=== PATIENT | male | born 1940 | race Caucasian/White ===

== ENCOUNTER → 2019-03-25 | Outpatient (CLI) | payer MEDICARE ==
[~2019-03-25] MED LIST: CATHETER FLUSH 10 ML SYR IV PRN; HOLD METFORMIN - RECEIVED CONTRAST 20 ML VIAL IV SCH; IOHEXOL 350 MG/ML 100 ML (OMNIPAQUE 350) VIAL IV ONE; NS 100 ML (IVPB) BAG IV ONE
[2019-03-25 08:35] LABS: CREATININE SERUM 1.33 MG/DL (0.60-1.30)
--- NOTE | 2019-03-25 11:51 | Diagnostic Imaging Report ---
PROCEDURE: CT abdomen and pelvis with and without contrast. TECHNIQUE: Precontrast acquisitions were acquired through the abdomen and pelvis. Multiple contiguous axial images were obtained through the abdomen and pelvis after the administration of intravenous contrast. Auto Exposure Controls were utilized during the CT exam to meet ALARA standards for radiation dose reduction. INDICATION: Right-sided abdominal pain for 6 weeks. No prior studies are available for comparison. FINDINGS: Lung bases demonstrate tiny nodular density right middle lobe measuring 5 mm. Otherwise lung bases are clear. No discrete liver mass is detected. The gallbladder is surgically absent. No biliary ductal dilatation is seen. The pancreas and spleen are unremarkable. Left adrenal gland is unremarkable. There may be a small nodule involving the lateral limb of the right adrenal gland measuring 15 mm. This is low density and may represent a small adenoma. Kidneys have extrarenal pelves bilaterally. No definite calculi or hydronephrosis is detected. Aorta is heavily calcified but not aneurysmal. No central retroperitoneal or mesenteric lymphadenopathy is detected. Post surgical changes involving bowel loops in the right abdomen are noted. Bowel loops are normal caliber. No obstruction is seen. There is diverticulosis of the sigmoid colon but no evidence of acute diverticulitis. Moderate stool in the colon is noted. Appendix is unremarkable. No free fluid is identified. No fluid collection is detected. Bladder is unremarkable. The prostate gland is enlarged. No definite pelvic lymphadenopathy is detected. Bony structures demonstrate degenerative changes throughout the lumbar spine. IMPRESSION: 1. Diverticulosis without evidence of acute diverticulitis. 2. Prostatomegaly. 3. Small right adrenal nodule, likely adenoma. 4. No acute feature in the abdomen or pelvis is identified. Dictated by: Dictated on workstation # [id number]
== END ==
LOC: RAD FS 07:19
PROVIDERS: ATTEND Nurse Practitioner Family
DX: Z01.812 Encounter for preprocedural laboratory examination (principal); K57.30 Diverticulosis of large intestine without perforation or abscess without bleeding; N40.0 Benign prostatic hyperplasia without lower urinary tract symptoms; E27.8 Other specified disorders of adrenal gland; Z90.49 Acquired absence of other specified parts of digestive tract
CPT/HCPCS: 36415; 74178; 82565; 84520

== ENCOUNTER 2019-05-19 05:41 | Outpatient (CLI) | payer MEDICARE ==
[~2019-05-19] VITALS: Ht 170 cm; Wt 89.5 kg
[2019-05-19] MEDS ORDERED: CARV25TA PO (15:58)
[2019-05-19] MEDS ORDERED: TMSL.4C PO (15:58)
[2019-05-19] MEDS ORDERED: ALLO100T PO (15:58)
[2019-05-19] MEDS ORDERED: NAPR220C11 PO (15:58)
[2019-05-19] MEDS ORDERED: PANT20TA3 PO (15:58)
[2019-05-19] MEDS ORDERED: FLUT100B IH (15:58)
[2019-05-19] MEDS ORDERED: AMLO10TA7 PO (15:58)
[2019-05-19] MEDS ORDERED: HYDR25TA4 PO (15:58)
[2019-05-19] MEDS ORDERED: LOSA100T57 PO (15:58)
[2019-05-19] MEDS ORDERED: NITR0.4T42 SL (15:58)
[2019-05-19] MEDS ORDERED: ATOR40TA PO (15:58)
[2019-05-19] MEDS ORDERED: UMEC1BLS IH (15:58)
[2019-05-19] MEDS ORDERED: ASPI-586 PO (15:58)
== END 2019-05-19 16:04 | disposition home or self-care (01) ==
LOC: PREOP 05:41
PROVIDERS: ATTEND Surgery
DX: Z01.818 Encounter for other preprocedural examination (principal)

== ENCOUNTER → 2019-08-28 | Outpatient (CLI) | payer MEDICARE ==
[~2019-08-28] MED LIST changes: +ALLO100T PO; +AMLO10TA7 PO; +ASPI-586 PO; +ATOR40TA PO; +CARV25TA PO; -CATHETER FLUSH 10 ML SYR IV PRN; +FLUT100B IH; -HOLD METFORMIN - RECEIVED CONTRAST 20 ML VIAL IV SCH; +HYDR25TA4 PO; -IOHEXOL 350 MG/ML 100 ML (OMNIPAQUE 350) VIAL IV ONE; +LOSA100T57 PO; +NAPR220C11 PO; +NITR0.4T42 SL; -NS 100 ML (IVPB) BAG IV ONE; +PANT20TA3 PO; +TMSL.4C PO; +UMEC1BLS IH
--- NOTE | 2019-08-28 15:46 | Diagnostic Imaging Report ---
PROCEDURE: MRI lumbar spine. TECHNIQUE: Multiplanar, multisequence MRI of the lumbar spine was performed without contrast. INDICATION: Low back pain. COMPARISON: While I have no previous for direct comparison study, interpreted in correlation with an abdominopelvic CT from 03/25/2019 that includes sagittal and coronal reconstructions. FINDINGS: Grade 1 anterolisthesis of L4 on L5, stable. Minute retrolisthesis of 1-2 mm, T12 on L1 and L1 on L2, also stable. Lumbar statures are unremarkable. There is no marrow edema. There is disc collapse, disc desiccation, disc bulge and endplate osteophytes throughout the lumbar spine with multilevel ligamenta flava thickening and hypertrophic facet arthrosis. The constellation of findings result in severe substantial degrees of multilevel spinal stenosis involving the canal, neural foramina and lateral recesses. T12-L1: Osteophyte disc material and posterior element hypertrophy result in a moderate severity of right and mild left neural foraminal stenosis with mild canal narrowing. L1-L2: There is moderate canal and moderate severity of biforaminal stenosis. L2-L3: Moderate severity there is a severe degree of central canal stenosis as well as impingement upon the left greater than right lateral recesses and severe left with moderate degrees of right neural foraminal narrowing. L3-L4: Disc bulge endplate osteophytes and posterior element hypertrophy conspire to result in a moderate severity of canal stenosis with moderate right and [id number] left foraminal narrowing and at least mild impingement of bilateral lateral recesses. L4-L5: There is very severe central canal stenosis as well as severe bilateral lateral recess stenosis and severe left greater than right foraminal narrowing. There is thickened buckled ligamenta flava, disc bulge, endplate osteophytes and facet arthrosis. L5-S1: There is mild to moderate left foraminal narrowing. No substantial canal or right foraminal stenosis. Infrarenal aortic ectasia, 2.7 cm, unchanged from prior CT. IMPRESSION: Stable multilevel degenerative listheses. Substantial degrees of multilevel multifactorial canal, foraminal and recess stenoses listed level by level above with no acute appearing abnormality. Dictated by: Dictated on workstation # [id number]
== END ==
LOC: RAD 13:29
PROVIDERS: ATTEND Family Medicine
DX: M43.16 Spondylolisthesis, lumbar region (principal); M48.07 Spinal stenosis, lumbosacral region; M51.16 Intervertebral disc disorders with radiculopathy, lumbar region; M25.78 Osteophyte, vertebrae
CPT/HCPCS: 72148